=== PATIENT | male | born 1990 | race African-American/Black ===

== ENCOUNTER 2017-05-21 23:13 | Emergency (ER) | payer SELFPAY ==
[2017-05-22 00:35] LABS: #Monocytes 0.3 thou/uL (0.11-0.59); #Neutrophils 1.4 thou/uL (1.40-6.50); %Basophils 0.5 % (0.0-1.0); %Eosinophils 0.6 % (0.0-10.0); %Monocytes 11.2 % (0.0-10.0); %Neutrophils 49.7 % (42.0-75.0); Hemoglobin 13.5 g/dL (14.0-18.0); Mean Corpuscular HGB CONC 33.6 g/dL (32.0-36.0); Mean Corpuscular Hemoglobin 31.2 pg (27.0-31.0); Mean Corpuscular Volume 92.7 fl (80.0-94.0); Mean Platelet Volume 7.3 fL (7.4-10.4); Platelet Count 149 thou/uL (130-400); RBC Distribution Width 12.1 % (11.5-14.5); Red Blood Cell (RBC) Count 4.35 mill/uL (4.70-6.10); White Blood Cell (WBC) Count 2.7 thou/uL (4.8-10.8)
[2017-05-22 00:56] LABS: ALT (SGPT) 15 U/L (8-55); AST (SGOT) 18 U/L (5-34); Albumin 3.9 g/dL (3.5-5.0); Alkaline Phosphatase 95 U/L (40-150); Anion Gap 12 mmol/L (10-20); BUN (Urea Nitrogen) 10 mg/dL (8.9-20.6); Bilirubin, Total Less than 0.2 mg/dL (0.2-1.2); Calc. Creatinine Clearance 0 mL/min (70-130); Calcium 8.8 mg/dL (7.8-10.44); Carbon Dioxide 27 mmol/L (22-29); Chloride 105 mmol/L (98-107); Estimated GFR-MDRD Greater than 90; Globulin 2.6 g/dL (2.4-3.5); Glucose 102 mg/dL (70-105); Lipase 30 U/L (8-78); Potassium 3.8 mmol/L (3.5-5.1); Protein, Total 6.5 g/dL (6.0-8.3); Sodium 140 mmol/L (136-145)
[2017-05-22] MEDS ORDERED: Ketorolac Tromethamine 30 MG/ML VIAL ONE (04:24)
[2017-05-22] MEDS ORDERED: Metoclopramide HCl 10 MG/2 ML VIAL ONE (04:24)
[2017-05-22 04:46] LABS: Reticulocyte Count 0.3 % (0.5-1.5)
== END 2017-05-22 05:23 | disposition home or self-care (01) ==
LOC: ERS 23:13
DX: J06.9 Acute upper respiratory infection, unspecified (principal); R19.7 Diarrhea, unspecified; R11.2 Nausea with vomiting, unspecified
CPT/HCPCS: 36415; 80053; 82150; 83690; 85025; 85046; 87804; 96365; 96375; J1885; J2765

== ENCOUNTER 2019-07-24 13:07 | Emergency (ER) | payer BC, SELFPAY ==
--- NOTE | 2019-07-24 13:30 | RAD ---
THREE VIEWS RIGHT HAND: COMPARISON: None. HISTORY: Right hand abscess and swelling. FINDINGS: Three views of the right hand show no evidence of acute fracture or dislocation. Focal soft tissue s welling is seen along the dorsal aspect of the hand. No air is seen in the soft tissues. No radiopa que foreign body is seen. IMPRESSION: Dorsal soft tissue swelling without underlying osseous abnormality. POS: [facility]
[2019-07-24 14:23] LABS: #Basophils 0.1 thou/uL (0.0-0.2); #Eosinphils 0.1 thou/uL (0.0-0.7); #Lymphocytes 1.8 thou/uL (1.20-3.40); #Monocytes 0.5 thou/uL (0.11-0.59); #Neutrophils 5.4 thou/uL (1.40-6.50); %Basophils 0.8 % (0.0-1.0); %Eosinophils 1.1 % (0.0-10.0); %Lymphocytes 22.6 % (21.0-51.0); %Monocytes 6.6 % (0.0-10.0); %Neutrophils 68.9 % (42.0-75.0); Hemoglobin 14.6 g/dL (14.0-18.0); Mean Corpuscular HGB CONC 33.5 g/dL (32.0-36.0); Mean Corpuscular Volume 92.6 fL (78.0-98.0); Mean Platelet Volume 6.9 fL (7.4-10.4); Platelet Count 305 thou/uL (130-400); RBC Distribution Width 11.6 % (11.5-14.5); Red Blood Cell (RBC) Count 4.71 mill/uL (4.70-6.10); White Blood Cell (WBC) Count 7.8 thou/uL (4.8-10.8)
[2019-07-24 14:45] LABS: ALT (SGPT) 20 U/L (8-55); AST (SGOT) 17 U/L (5-34); Albumin 4.1 g/dL (3.5-5.0); Alkaline Phosphatase 135 U/L (40-110); Anion Gap 10 mmol/L (10-20); BUN (Urea Nitrogen) 7 mg/dL (8.9-20.6); Bilirubin, Total 0.2 mg/dL (0.2-1.2); Calc. Creatinine Clearance 0 mL/min (70-130); Calcium 9.6 mg/dL (7.8-10.44); Carbon Dioxide 30 mmol/L (22-29); Chloride 104 mmol/L (98-107); Estimated GFR-MDRD Greater than 90; Glucose 90 mg/dL (70-105); Potassium 4.2 mmol/L (3.5-5.1); Protein, Total 7.1 g/dL (6.0-8.3); Sodium 140 mmol/L (136-145)
[2019-07-24] MEDS ORDERED: Lidocaine 1% (PF) 30 ML VIAL ONE (15:31)
== END 2019-07-24 16:40 | disposition home or self-care (01) ==
LOC: ERS 13:07
DX: L02.511 Cutaneous abscess of right hand (principal)
CPT/HCPCS: 10060; 36415; 80053; 85025; J2001

== ENCOUNTER 2020-03-09 18:06 | Emergency (ER) | payer BC | END 2020-03-09 19:28 | disposition home or self-care (01) | LOC: ERS 18:06 | DX: S91.312A Laceration without foreign body, left foot, initial encounter (principal); F90.9 Attention-deficit hyperactivity disorder, unspecified type; F17.210 Nicotine dependence, cigarettes, uncomplicated; B20 Human immunodeficiency virus [HIV] disease; J45.909 Unspecified asthma, uncomplicated; F31.9 Bipolar disorder, unspecified; W25.XXXA Contact with sharp glass, initial encounter | CPT/HCPCS: 12001; 90471 ==

== ENCOUNTER 2021-02-05 21:27 | Emergency (ER) | payer OTHER, BC ==
[2021-02-05] MEDS ORDERED: Lidocaine 1% w/Epinephrine 1:100K 20 ML VIAL ONE (22:28)
[2021-02-05] MEDS ORDERED: Bacitracin 1 PK ONE (23:37)
[2021-02-05] MEDS ORDERED: Boostrix 0.5 ML (Tdap) VIAL ONE (23:37)
== END 2021-02-05 23:46 | disposition home or self-care (01) ==
LOC: ERS 21:27
DX: S01.511A Laceration without foreign body of lip, initial encounter (principal); W01.10XA Fall on same level from slipping, tripping and stumbling with subsequent striking against unspecified object, initial encounter; I10 Essential (primary) hypertension; J45.909 Unspecified asthma, uncomplicated; Z21 Asymptomatic human immunodeficiency virus [HIV] infection status; F17.210 Nicotine dependence, cigarettes, uncomplicated
CPT/HCPCS: 12052; 90471; 90715

== ENCOUNTER 2023-09-25 23:26 | Emergency (ER) | payer SELFPAY | END 2023-09-26 02:50 | LOC: ERS 23:26 | DX: F16.10 Hallucinogen abuse, uncomplicated (principal); T40.995A Adverse effect of other psychodysleptics [hallucinogens], initial encounter | CPT/HCPCS: 36415; 80053; 82550; 85025; 99283 ==